=== PATIENT | female | born 1930 | race Caucasian/White ===

== ENCOUNTER → 2017-04-23 | Outpatient (CLI) | payer OTHER ==
[~2017-04-23] MED LIST: ADALAT CC 30 MG30 MG PO; ADVAIR HFA120 INHALA IH; ALPRAZOLAM0.25 M2 PO; AMIODARONE HCL200 MG PO; BENICAR HCT 401 EAC1 PO; CARDIZEM CD,CA240 MG PO; CRANBERRY TABL1 EACH PO; DIGITEK125 MC2 PO; DIGOXIN125 MCG PO; DILTIAZEM 24HR240 MG PO; EYE DROP15 ML BOTH EYES; FUROSEMIDE20 MG PO; FUROSEMIDE40 MG PO; LANSOPRAZOLE30 MG PO; LANTUS 3 M100 UNITS1 SC; LEVOTHYROXINE100 MCG PO; LOSARTAN POTASS25 MG PO; METOPROLOL SUC100 MG PO; METOPROLOL SUCC50 MG PO; NAPROXEN SODIU220 MG PO; ONGLYZA5 MG PO; POTASSIUM CHLO20 ME1 PO; POTASSIUM CHLO20 MEQ PO; PRESERVISION A1 EAC2 PO; PROAIR HFA8.5 GM IH; TYLENOL REGULA325 MG PO; VITAMIN D31000 UNI2 PO; XARELTO15 MG PO; ZOLPIDEM TARTRAT5 MG PO
== END | disposition home or self-care (01) ==
LOC: NUC 09:40
DX: R07.89 Other chest pain (principal); R79.1 Abnormal coagulation profile
CPT/HCPCS: 71020; 78582; A9540; A9567

== ENCOUNTER 2017-05-07 18:09 | Observation (INO) | payer OTHER ==
[~2017-05-07] VITALS: Ht 154.9 cm; Wt 80.0 kg
[~2017-05-07 18:09] MED LIST changes: +TOPROL XL25 MG PO
[2017-05-07 18:37] LABS: HEMATOCRIT 40.5 % (36.0-46.0); MCH 32.1 PG (29.0-34.0); MCHC 33.3 G/DL (30.0-36.0); MCV 96.4 FL (83-99); MEAN PLAT.VOLUME 10.1 uM^3 (9.5-12.4); PLATELET COUNT 226 K/uL (156-360); RBC DIS.WIDTH-CV 12.9 % (11.8-14.6); RBC DIS.WIDTH-SD 45.6 % (39-53); WHITE BLOOD COUNT 9.5 K/uL (4.1-10.2)
[2017-05-07 18:53] LABS: CHLORIDE 103 mEq/L (99-109); SODIUM 139 mEq/L (136-147)
[2017-05-07 18:54] LABS: GLUCOSE 134 mg/dL (70-99)
[2017-05-07 18:56] LABS: ANION GAP 16 MEQ/L (2-14)
[2017-05-07 18:58] LABS: GFR ESTIMATE (CALCULATED) 24 mL/min/
[2017-05-07 18:59] LABS: TROP-I INTERPRETATION NEGATIVE; TROPONIN-I 0.02 ng/mL (0.0-0.30); UREA NITROGEN (BUN) 47 mg/dL (9-23)
[2017-05-07] MEDS ORDERED: LEVOTHYROXINE150 MCG PO (22:13)
[2017-05-07] MEDS ORDERED: FLONASE16 G1 BOTH NARES (22:15)
[2017-05-07] MEDS ORDERED: CORDARONE200 MG PO (22:18)
[2017-05-07] MEDS ORDERED: COLACE100 MG PO (22:26)
[2017-05-07] MEDS ORDERED: IRON PO (22:28)
[2017-05-07] MEDS ORDERED: LITE COAT ASPI325 M1 PO (22:29)
[2017-05-07] MEDS ORDERED: ALDACTONE25 MG PO (22:30)
[2017-05-07] MEDS ORDERED: PRAVACHOL20 MG PO (22:32)
[2017-05-07] MEDS ORDERED: VITAMIN C250 MG PO (22:33)
[2017-05-08 00:08] VITALS: BP 144/65
[2017-05-08 02:41] LABS: TROP-I INTERPRETATION NEGATIVE; TROPONIN-I 0.03 ng/mL (0.0-0.30)
[2017-05-08 04:34] VITALS: BP 132/63
[2017-05-08 04:56] LABS: POINT-OF-CARE METER ID UU13113700
[2017-05-08 05:31] LABS: ALKALINE PHOSPHATASE 75 IU/L (3-129); ANION GAP 10 MEQ/L (2-14); CHLORIDE 105 MEQ/L (99-109); GFR ESTIMATE (CALCULATED) 27 mL/min/; GLUCOSE 69 mg/dL (70-99); POTASSIUM 4.5 MEQ/L (3.7-5.4); SAMPLE HEMOLYSIS CHECK 0; SAMPLE ICTERIC CHECK 0; SAMPLE LIPEMIA CHECK 0; SODIUM 140 MEQ/L (136-147); TOTAL BILIRUBIN 0.4 MG/DL (0.0-1.0); UREA NITROGEN (BUN) 46 mg/dL (9-23)
[2017-05-08 05:33] LABS: POINT-OF-CARE METER ID UU13113700
[2017-05-08 05:33] LABS: MCH 33.6 PG (29.0-34.0); MCHC 34.3 G/DL (30.0-36.0); MCV 97.9 FL (83-99); MEAN PLAT.VOLUME 10.4 uM^3 (9.5-12.4); PLATELET COUNT 189 K/uL (156-360); RBC DIS.WIDTH-CV 12.8 % (11.8-14.6); RBC DIS.WIDTH-SD 45.3 % (39-53); RED BLOOD COUNT 3.78 M/uL (3.80-5.20); WHITE BLOOD COUNT 7.9 K/uL (4.1-10.2)
[2017-05-08 05:38] LABS: GLUCOSE 69 mg/dL (70-99)
[2017-05-08 07:30] VITALS: BP 147/67
[2017-05-08 08:23] LABS: POINT-OF-CARE METER ID UU13113831
[2017-05-08 09:59] LABS: TROP-I INTERPRETATION NEGATIVE; TROPONIN-I 0.04 ng/mL (0.0-0.30)
[2017-05-08 12:30] LABS: POINT-OF-CARE METER ID UU13113700
[2017-05-08 12:44] VITALS: BP 169/70
== END 2017-05-08 13:46 | disposition home or self-care (01) ==
LOC: EME 18:09 → EDOF 21:58 → ENRESERV 22:01 → 5WEST 23:55
PROVIDERS: Internal Medicine
DX: R07.89 Other chest pain (principal); I35.0 Nonrheumatic aortic (valve) stenosis; I27.2 Other secondary pulmonary hypertension; E11.40 Type 2 diabetes mellitus with diabetic neuropathy, unspecified; J32.9 Chronic sinusitis, unspecified; E03.9 Hypothyroidism, unspecified; I25.10 Atherosclerotic heart disease of native coronary artery without angina pectoris; I48.91 Unspecified atrial fibrillation; Z86.711 Personal history of pulmonary embolism; Z79.82 Long term (current) use of aspirin; Z85.038 Personal history of other malignant neoplasm of large intestine; H35.30 Unspecified macular degeneration; I10 Essential (primary) hypertension; Z72.0 Tobacco use; Z79.4 Long term (current) use of insulin; Z90.49 Acquired absence of other specified parts of digestive tract; Z90.710 Acquired absence of both cervix and uterus; Z88.2 Allergy status to sulfonamides; Z88.5 Allergy status to narcotic agent; Z88.8 Allergy status to other drugs, medicaments and biological substances
CPT/HCPCS: 71020; 80048; 80053; 82948; 84484; 84999; 85027; 85379; 93005; 99202; G0378; J1644; J7030

== ENCOUNTER 2017-07-03 16:58 | Inpatient (IN) | payer OTHER ==
[~2017-07-03] VITALS: Ht 154.9 cm; Wt 77.0 kg
[~2017-07-03 16:58] MED LIST changes: +ALDACTONE25 MG PO; +COLACE100 MG PO; +CORDARONE200 MG PO; +FLONASE16 G1 BOTH NARES; -FUROSEMIDE40 MG PO; +FUROSEMIDE80 MG PO; +IRON325 M1 PO; +LITE COAT ASPI325 M1 PO; +LOPRESSOR25 MG PO; +PRAVACHOL20 MG PO; +SYNTHROID175 MCG PO; -TOPROL XL25 MG PO; +VITAMIN C250 MG PO
[2017-07-03 19:21] LABS: EOSINOPHIL (%) 0.1 % (0-5); IMMATURE GRANULOCYTE (%) 0.6 % (0.0-0.7); IMMATURE GRANULOCYTE COUNT 0.1 K/uL; INSTRUMENT ABS NEUTROPHIL CT 9.9 K/uL; LYMPHOCYTE COUNT 0.6 K/uL (1.0-2.8); MCH 32.4 PG (29.0-34.0); MCHC 33.6 G/DL (30.0-36.0); MCV 96.3 FL (83-99); MEAN PLAT.VOLUME 10.1 uM^3 (9.5-12.4); MONOCYTE (%) 5.7 % (3-12); MONOCYTE COUNT 0.6 K/uL (0-0.8); NEUTROPHIL (%) 87.7 % (45-76); NEUTROPHIL COUNT 9.9 K/uL (1.8-6.4); PLATELET COUNT 216 K/uL (156-360); RBC DIS.WIDTH-SD 45.5 % (39-53); RED BLOOD COUNT 3.74 M/uL (3.80-5.20); WHITE BLOOD COUNT 11.2 K/uL (4.1-10.2)
[2017-07-03 19:41] LABS: CHLORIDE 99 mEq/L (99-109); POTASSIUM 4.8 mEq/L (3.7-5.4); SODIUM 136 mEq/L (136-147)
[2017-07-03 19:43] LABS: GLUCOSE 212 mg/dL (70-99)
[2017-07-03 19:44] LABS: ANION GAP 14 MEQ/L (2-14); TROP-I INTERPRETATION NEGATIVE; TROPONIN-I 0.03 ng/mL (0.0-0.30)
[2017-07-03 19:45] LABS: TOTAL BILIRUBIN 0.7 mg/dL (0.0-1.0)
[2017-07-03 19:47] LABS: ALKALINE PHOSPHATASE 102 IU/L (3-129); GFR ESTIMATE (CALCULATED) 28 mL/min/
[2017-07-03 19:48] LABS: UREA NITROGEN (BUN) 47 mg/dL (9-23)
[2017-07-03 19:50] LABS: CREATINE KINASE 410 IU/L (1-294)
[2017-07-03 20:42] LABS: ADD MIUA? YES; BILIRUBIN NEGATIVE; BLOOD NEGATIVE; COLOR YELLOW ((YELLOW)); GLUCOSE (STRIP) NEGATIVE; KETONES NEGATIVE; LEUKOCYTES NEGATIVE; NITRITE NEGATIVE; PROTEIN (STRIP) NEGATIVE; SPECIFIC GRAVITY 1.008 (1.000-1.030); UROBILINOGEN 0.2 MG/DL (0.2-1.0)
[2017-07-03 20:59] LABS: BACTERIA RARE /HPF; EPITHELIAL CELLS 1+ /HPF; HYALINE CASTS 15-20 /LPF; MUCUS TRACE /LPF; RED BLOOD CELLS 0-5 /HPF (0-5); UCUL ADDED? NO; WHITE BLOOD CELLS 0-5 /HPF (0-5)
[2017-07-03] MEDS ORDERED: LYRICA50 MG PO (22:17)
[2017-07-03] MEDS ORDERED: COLACE100 MG PO (22:18)
[2017-07-04 02:05] VITALS: BP 172/72
[2017-07-04 06:42] LABS: INTER. NORMALIZED RATIO 1.1; PROTHROMBIN TIME 12.1 SEC (10.2-12.9)
[2017-07-04 06:45] LABS: PTT 23.6 SEC (25-37)
[2017-07-04 06:47] LABS: ANION GAP 8 MEQ/L (2-14); CHLORIDE 105 MEQ/L (99-109); GFR ESTIMATE (CALCULATED) 30 mL/min/; GLUCOSE 110 mg/dL (70-99); POTASSIUM 4.5 MEQ/L (3.7-5.4); SAMPLE HEMOLYSIS CHECK 0; SAMPLE ICTERIC CHECK 0; SAMPLE LIPEMIA CHECK 0; SODIUM 138 MEQ/L (136-147); UREA NITROGEN (BUN) 45 mg/dL (9-23)
[2017-07-04 06:55] LABS: HEMATOCRIT 28.3 % (36.0-46.0); MCH 32.5 PG (29.0-34.0); MCHC 33.2 G/DL (30.0-36.0); MCV 97.9 FL (83-99); PLATELET COUNT 177 K/uL (156-360); RBC DIS.WIDTH-SD 46.3 % (39-53); RED BLOOD COUNT 2.89 M/uL (3.80-5.20); WHITE BLOOD COUNT 8.5 K/uL (4.1-10.2)
[2017-07-04 07:14] LABS: CREATINE KINASE 208 IU/L (1-294)
[2017-07-04 08:18] VITALS: BP 118/59
[2017-07-04 10:36] VITALS: BP 146/65
[2017-07-04 13:58] LABS: POINT-OF-CARE METER ID UU14117124
[2017-07-04 16:25] LABS: POINT-OF-CARE METER ID UU14117124
[2017-07-04 16:26] VITALS: BP 134/60
[2017-07-04 22:01] LABS: POINT-OF-CARE METER ID UU14117124
[2017-07-04 23:25] VITALS: BP 150/65
[2017-07-05 06:09] LABS: POINT-OF-CARE METER ID UU14208753
[2017-07-05 07:10] LABS: POINT-OF-CARE METER ID UU14208753
[2017-07-05 07:12] LABS: ALKALINE PHOSPHATASE 64 IU/L (3-129); ANION GAP 8 MEQ/L (2-14); CHLORIDE 105 MEQ/L (99-109); GFR ESTIMATE (CALCULATED) 32 mL/min/; GLUCOSE 54 mg/dL (70-99); POTASSIUM 4.5 MEQ/L (3.7-5.4); SAMPLE HEMOLYSIS CHECK 0; SAMPLE ICTERIC CHECK 0; SAMPLE LIPEMIA CHECK 0; SODIUM 135 MEQ/L (136-147); TOTAL BILIRUBIN 0.4 MG/DL (0.0-1.0); UREA NITROGEN (BUN) 35 mg/dL (9-23)
[2017-07-05 07:35] VITALS: BP 130/62
[2017-07-05 11:38] VITALS: BP 162/68
[2017-07-05 11:39] LABS: POINT-OF-CARE METER ID UU14208753
[2017-07-05 15:50] VITALS: BP 165/69
[2017-07-05 16:56] LABS: POINT-OF-CARE METER ID UU14208753
[2017-07-05 20:07] VITALS: BP 155/67
[2017-07-05 21:18] LABS: POINT-OF-CARE METER ID UU14149397
[2017-07-05 23:13] VITALS: BP 135/64
[2017-07-06 06:48] LABS: POINT-OF-CARE METER ID UU14117124
[2017-07-06 07:22] VITALS: BP 148/67
[2017-07-06 11:30] LABS: POINT-OF-CARE METER ID UU14149397
[2017-07-06 15:34] VITALS: BP 103/51
[2017-07-06 17:01] LABS: POINT-OF-CARE METER ID UU14208753
[2017-07-06 21:11] LABS: POINT-OF-CARE METER ID UU14117124
[2017-07-06 23:41] VITALS: BP 143/64
[2017-07-07 06:39] LABS: POINT-OF-CARE METER ID UU14149397
[2017-07-07 07:17] VITALS: BP 174/76
[2017-07-07 09:27] LABS: HEMATOCRIT 33.8 % (36.0-46.0); MCH 33.3 PG (29.0-34.0); MCHC 33.7 G/DL (30.0-36.0); MCV 98.8 FL (83-99); MEAN PLAT.VOLUME 10.1 uM^3 (9.5-12.4); PLATELET COUNT 171 K/uL (156-360); RBC DIS.WIDTH-CV 13.2 % (11.8-14.6); RBC DIS.WIDTH-SD 47.1 % (39-53); RED BLOOD COUNT 3.42 M/uL (3.80-5.20); WHITE BLOOD COUNT 7.6 K/uL (4.1-10.2)
[2017-07-07 09:29] VITALS: BP 130/58
[2017-07-07 09:41] LABS: ALKALINE PHOSPHATASE 62 IU/L (3-129); ANION GAP 8 MEQ/L (2-14); CHLORIDE 99 MEQ/L (99-109); GFR ESTIMATE (CALCULATED) 38 mL/min/; SAMPLE HEMOLYSIS CHECK 0; SAMPLE ICTERIC CHECK 0; SAMPLE LIPEMIA CHECK 0; SODIUM 131 MEQ/L (136-147); TOTAL BILIRUBIN 0.4 MG/DL (0.0-1.0); UREA NITROGEN (BUN) 30 mg/dL (9-23)
[2017-07-07 09:42] LABS: GLUCOSE 147 mg/dL (70-99); POTASSIUM 5.7 MEQ/L (3.7-5.4)
[2017-07-07 10:52] LABS: POINT-OF-CARE METER ID UU14149397
[2017-07-07 11:23] VITALS: BP 116/57
[2017-07-07] MEDS ORDERED: FUROSEMIDE40 MG PO (12:07)
== END 2017-07-07 14:25 | DRG 558 ==
LOC: EME 16:58 → 3EAST 22:30 → EDOF 22:30 → ENRESERV 23:15 → 3EAST 07-04 01:33
PROVIDERS: Emergency Medicine; Internal Medicine
DX: M62.82 Rhabdomyolysis (principal); I13.0 Hypertensive heart and chronic kidney disease with heart failure and stage 1 through stage 4 chronic kidney disease, or unspecified chronic kidney disease; E11.22 Type 2 diabetes mellitus with diabetic chronic kidney disease; N18.9 Chronic kidney disease, unspecified; I50.32 Chronic diastolic (congestive) heart failure; D63.1 Anemia in chronic kidney disease; R29.6 Repeated falls; I48.91 Unspecified atrial fibrillation; E86.0 Dehydration; M48.061 Spinal stenosis, lumbar region without neurogenic claudication; E11.42 Type 2 diabetes mellitus with diabetic polyneuropathy; E11.51 Type 2 diabetes mellitus with diabetic peripheral angiopathy without gangrene; E11.649 Type 2 diabetes mellitus with hypoglycemia without coma; M47.9 Spondylosis, unspecified; G89.29 Other chronic pain; E78.5 Hyperlipidemia, unspecified; E03.9 Hypothyroidism, unspecified; S80.02XA Contusion of left knee, initial encounter; S80.01XA Contusion of right knee, initial encounter; S40.022A Contusion of left upper arm, initial encounter; S40.021A Contusion of right upper arm, initial encounter; S70.02XA Contusion of left hip, initial encounter; S10.93XA Contusion of unspecified part of neck, initial encounter; S00.83XA Contusion of other part of head, initial encounter; W18.30XA Fall on same level, unspecified, initial encounter; Y92.009 Unspecified place in unspecified non-institutional (private) residence as the place of occurrence of the external cause; E66.9 Obesity, unspecified; Z68.31 Body mass index [BMI] 31.0-31.9, adult; M15.9 Polyosteoarthritis, unspecified; Z91.81 History of falling; Z79.4 Long term (current) use of insulin; Z79.82 Long term (current) use of aspirin; Z95.2 Presence of prosthetic heart valve; Z90.710 Acquired absence of both cervix and uterus; Z90.49 Acquired absence of other specified parts of digestive tract; Z95.820 Peripheral vascular angioplasty status with implants and grafts; Z86.711 Personal history of pulmonary embolism; Z85.42 Personal history of malignant neoplasm of other parts of uterus; Z86.010 Personal history of colon polyps; Z87.891 Personal history of nicotine dependence; Z82.49 Family history of ischemic heart disease and other diseases of the circulatory system
CPT/HCPCS: 70450; 71010; 72125; 72148; 80048; 80053; 81003; 82550; 82948; 83605; 84443; 84484; 85025; 85027; 85610; 85730; 87040; 99281; 99285; J1650; J7030

== ENCOUNTER 2018-02-16 16:54 | Observation (INO) | payer OTHER ==
[~2018-02-16] VITALS: Ht 154.9 cm; Wt 54.9 kg
[~2018-02-16 16:54] MED LIST changes: +FUROSEMIDE40 MG PO; +LYRICA50 MG PO
[2018-02-16 17:33] LABS: BASOPHIL (%) 0.3 % (0-1); EOSINOPHIL (%) 0.7 % (0-5); EOSINOPHIL COUNT 0.1 K/uL (0-0.3); HEMATOCRIT 34.1 % (36.0-46.0); HEMOGLOBIN 11.9 G/DL (11.9-15.5); IMMATURE GRANULOCYTE (%) 0.3 % (0.0-0.7); LYMPHOCYTE (%) 18.6 % (15-42); LYMPHOCYTE COUNT 1.3 K/uL (1.0-2.8); MCH 31.7 PG (29.0-34.0); MCHC 34.9 G/DL (30.0-36.0); MCV 90.9 FL (83-99); MONOCYTE (%) 10.1 % (3-12); MONOCYTE COUNT 0.7 K/uL (0-0.8); NEUTROPHIL COUNT 4.7 K/uL (1.8-6.4); PLATELET COUNT 196 K/uL (156-360); RBC DIS.WIDTH-CV 12.6 % (11.8-14.6); RBC DIS.WIDTH-SD 41.6 % (39-53); RED BLOOD COUNT 3.75 M/uL (3.80-5.20); WHITE BLOOD COUNT 6.7 K/uL (4.1-10.2)
[2018-02-16 17:43] LABS: CHLORIDE 96 mEq/L (99-109); POTASSIUM 4.4 mEq/L (3.7-5.4); PTT 26.7 SEC (25-37); SODIUM 133 mEq/L (136-147)
[2018-02-16 17:45] LABS: GLUCOSE 102 mg/dL (70-99)
[2018-02-16 17:49] LABS: CREATININE 1.6 mg/dL (0.6-1.3); GFR ESTIMATE (CALCULATED) 32 mL/min/
[2018-02-16 17:50] LABS: UREA NITROGEN (BUN) 35 mg/dL (9-23)
[2018-02-16 17:55] LABS: TROP-I INTERPRETATION NEGATIVE; TROPONIN-I 0.02 ng/mL (0.0-0.30)
[2018-02-16] MEDS ORDERED: LASIX80 MG PO (21:27)
[2018-02-16] MEDS ORDERED: ENDOCET 5-3251 EACH PO (21:29)
[2018-02-16] MEDS ORDERED: LYRICA25 MG PO (21:30)
[2018-02-16] MEDS ORDERED: CLOPIDOGREL75 MG PO (21:31)
[2018-02-16] MEDS ORDERED: CILOSTAZOL50 MG PO (21:32)
[2018-02-16] MEDS ORDERED: SYSTANE BALANCE10 ML BOTH EYES (21:33)
[2018-02-16] MEDS ORDERED: TOPROL XL25 MG PO (21:33)
[2018-02-16] MEDS ORDERED: TYLENOL EXTRA500 MG PO (21:33)
[2018-02-17 00:37] LABS: TROP-I INTERPRETATION NEGATIVE; TROPONIN-I 0.02 ng/mL (0.0-0.30)
[2018-02-17 01:45] VITALS: BP 170/82
[2018-02-17 05:06] VITALS: BP 153/71
[2018-02-17 07:33] LABS: HEMOGLOBIN 11.5 G/DL (11.9-15.5); MCH 31.3 PG (29.0-34.0); MCHC 33.8 G/DL (30.0-36.0); MCV 92.4 FL (83-99); PLATELET COUNT 201 K/uL (156-360); RBC DIS.WIDTH-SD 44.2 % (39-53); RED BLOOD COUNT 3.68 M/uL (3.80-5.20); WHITE BLOOD COUNT 5.9 K/uL (4.1-10.2)
[2018-02-17 07:50] LABS: TROP-I INTERPRETATION NEGATIVE; TROPONIN-I 0.02 ng/mL (0.0-0.30)
[2018-02-17 08:00] VITALS: BP 180/75
[2018-02-17 08:30] LABS: CHLORIDE 100 MEQ/L (99-109); CREATININE 1.4 MG/DL (0.6-1.3); GFR ESTIMATE (CALCULATED) 38 mL/min/; GLUCOSE 102 mg/dL (70-99); POTASSIUM 4.6 MEQ/L (3.7-5.4); SODIUM 136 MEQ/L (136-147); UREA NITROGEN (BUN) 31 mg/dL (9-23)
== END 2018-02-17 13:09 ==
LOC: EME 16:54 → EDOF 21:59 → 4SOUTH 21:59 → ENRESERV 22:14 → 4SOUTH 02-17 00:42
PROVIDERS: Emergency Medicine; Hospitalist
DX: R07.9 Chest pain, unspecified (principal); I48.1 Persistent atrial fibrillation; Z95.2 Presence of prosthetic heart valve; R94.31 Abnormal electrocardiogram [ECG] [EKG]; I44.0 Atrioventricular block, first degree; E11.22 Type 2 diabetes mellitus with diabetic chronic kidney disease; I13.0 Hypertensive heart and chronic kidney disease with heart failure and stage 1 through stage 4 chronic kidney disease, or unspecified chronic kidney disease; I50.20 Unspecified systolic (congestive) heart failure; N18.3 Chronic kidney disease, stage 3 (moderate); E11.51 Type 2 diabetes mellitus with diabetic peripheral angiopathy without gangrene; Z95.820 Peripheral vascular angioplasty status with implants and grafts; E78.5 Hyperlipidemia, unspecified; I25.10 Atherosclerotic heart disease of native coronary artery without angina pectoris; E11.42 Type 2 diabetes mellitus with diabetic polyneuropathy; Z86.711 Personal history of pulmonary embolism; I35.0 Nonrheumatic aortic (valve) stenosis; I27.20 Pulmonary hypertension, unspecified; Z85.038 Personal history of other malignant neoplasm of large intestine; E03.9 Hypothyroidism, unspecified; I89.0 Lymphedema, not elsewhere classified; I87.8 Other specified disorders of veins; L97.829 Non-pressure chronic ulcer of other part of left lower leg with unspecified severity; L97.819 Non-pressure chronic ulcer of other part of right lower leg with unspecified severity; M19.90 Unspecified osteoarthritis, unspecified site; Z90.49 Acquired absence of other specified parts of digestive tract; Z87.891 Personal history of nicotine dependence; Z82.49 Family history of ischemic heart disease and other diseases of the circulatory system; Z83.3 Family history of diabetes mellitus; Z88.2 Allergy status to sulfonamides; Z88.5 Allergy status to narcotic agent
CPT/HCPCS: 71045; 71275; 80048; 82948; 84484; 85025; 85027; 85610; 85730; 93005; 99281; 99285; G0378; J1644